=== PATIENT | female | born 1950 | race Two or more races ===

== ENCOUNTER 2019-03-10 11:34 | Outpatient (CLI) | payer OTHER ==
[~2019-03-10 11:34] MED LIST: ATENOLOL25 GM MC; GLUCOPHAGE XR500 MG PO; LOTREL 10-20 MG1 CAP PO; NOVOLIN 70100 UNITS/ IJ; VYTORIN 10-20 M1 TAB PO
== END 2019-03-10 12:03 | disposition home or self-care (01) ==
LOC: NUCLEAR 11:34
DX: M81.0 Age-related osteoporosis without current pathological fracture (principal)

== ENCOUNTER 2019-03-10 12:25 | Outpatient (CLI) | payer OTHER | END 2019-03-10 12:29 | disposition home or self-care (01) | LOC: MAMO-SONO 12:25 | DX: Z12.31 Encounter for screening mammogram for malignant neoplasm of breast (principal); Z87.898 Personal history of other specified conditions ==

== ENCOUNTER 2019-09-08 08:53 | Outpatient (CLI) | payer OTHER | END 2019-09-08 08:58 | disposition home or self-care (01) | LOC: RAD 08:53 | DX: M25.522 Pain in left elbow (principal) ==

== ENCOUNTER 2020-01-17 12:57 | Emergency (ER) | payer OTHER ==
[~2020-01-17] VITALS: Ht 162.6 cm; Wt 82.6 kg
[2020-01-17] MEDS ORDERED: LANTUS SOL100 UNIT/1 SQ (13:10)
[2020-01-17] MEDS ORDERED: SIMVASTATIN40 MG PO (13:10)
[2020-01-17] MEDS ORDERED: VALSARTAN-HCTZ1 EAC4 PO (13:10)
[2020-01-17] MEDS ORDERED: DOXAZOSIN MESYLA1 MG PO (13:11)
== END 2020-01-17 15:46 | disposition home or self-care (01) ==
LOC: ER 12:57
DX: S80.212A Abrasion, left knee, initial encounter (principal); W18.39XA Other fall on same level, initial encounter; Y93.89 Activity, other specified; Y92.480 Sidewalk as the place of occurrence of the external cause; Y99.8 Other external cause status

== ENCOUNTER 2020-02-03 04:35 | Emergency (ER) | payer OTHER ==
[~2020-02-03] VITALS: Ht 162.6 cm; Wt 83.0 kg
[~2020-02-03 04:35] MED LIST changes: +DOXAZOSIN MESYLA1 MG PO; +LANTUS SOL100 UNIT/1 SQ; +SIMVASTATIN40 MG PO; +VALSARTAN-HCTZ1 EAC4 PO
== END 2020-02-03 15:04 | disposition home or self-care (01) ==
LOC: ER 04:35
DX: N20.1 Calculus of ureter (principal)

== ENCOUNTER 2020-02-05 09:00 | Emergency (ER) | payer OTHER ==
[~2020-02-05] VITALS: Ht 162.6 cm; Wt 82.6 kg
[2020-02-05] MEDS ORDERED: TENORMIN25 MG (09:16)
== END 2020-02-05 16:25 | disposition home or self-care (01) ==
LOC: ER 09:00
DX: N20.1 Calculus of ureter (principal)

== ENCOUNTER 2020-03-02 07:20 | Outpatient (CLI) | payer OTHER ==
[~2020-03-02 07:20] MED LIST changes: +TENORMIN25 MG
== END 2020-03-02 07:33 | disposition home or self-care (01) ==
LOC: RAD 07:20
PROVIDERS: ATTEND Urology
DX: N20.1 Calculus of ureter (principal)

== ENCOUNTER 2020-03-23 08:29 | Outpatient (CLI) | payer OTHER | END 2020-03-23 08:44 | disposition home or self-care (01) | LOC: MRI 08:29 | PROVIDERS: ATTEND Physical Medicine & Rehabilitation | DX: M25.561 Pain in right knee (principal) | CPT/HCPCS: 73721 ==

== ENCOUNTER → 2020-04-24 06:58 | Outpatient (CLI) | payer OTHER | END | disposition home or self-care (01) | LOC: LAB 06:58 | PROVIDERS: ATTEND Urology | DX: N20.0 Calculus of kidney (principal); I11.9 Hypertensive heart disease without heart failure; E11.9 Type 2 diabetes mellitus without complications ==

== ENCOUNTER 2020-05-04 09:09 | Emergency (ER) | payer OTHER ==
[~2020-05-04] VITALS: Ht 162.6 cm; Wt 75.7 kg
[2020-05-04] MEDS ORDERED: FORTAMET1000 MG (09:31)
[2020-05-04] MEDS ORDERED: ZITHROMAX500 MG PO (16:44)
[2020-05-04] MEDS ORDERED: SYMBICORT 16010.2 GM IH (16:44)
[2020-05-04] MEDS ORDERED: PEPCID AC20 MG PO (16:44)
[2020-05-04] MEDS ORDERED: DECADRON4 MG PO (16:44)
[2020-05-04] MEDS ORDERED: HYDROCODONE-CH115 ML PO (17:10)
== END 2020-05-04 17:48 | disposition home or self-care (01) ==
LOC: ER 09:09
DX: U07.1 COVID-19 (principal); J18.9 Pneumonia, unspecified organism

== ENCOUNTER 2020-05-24 08:41 | Outpatient (CLI) | payer OTHER ==
[~2020-05-24 08:41] MED LIST changes: +DECADRON4 MG PO; +FORTAMET1000 MG; +HYDROCODONE-CH115 ML PO; +PEPCID AC20 MG PO; +SYMBICORT 16010.2 GM IH; +ZITHROMAX500 MG PO
== END 2020-05-24 08:47 | disposition home or self-care (01) ==
LOC: RAD 08:41
PROVIDERS: ATTEND Internal Medicine
DX: Z00.00 Encounter for general adult medical examination without abnormal findings (principal); I11.9 Hypertensive heart disease without heart failure; E66.8 Other obesity; E11.3593 Type 2 diabetes mellitus with proliferative diabetic retinopathy without macular edema, bilateral; E78.1 Pure hyperglyceridemia; E88.89 Other specified metabolic disorders; Z20.828 Contact with and (suspected) exposure to other viral communicable diseases; N18.2 Chronic kidney disease, stage 2 (mild); Z79.84 Long term (current) use of oral hypoglycemic drugs

== ENCOUNTER 2020-09-26 14:22 | Outpatient (CLI) | payer OTHER | END 2020-09-26 15:27 | disposition home or self-care (01) | LOC: MAMO-SONO 14:22 | PROVIDERS: ATTEND Internal Medicine | DX: Z12.31 Encounter for screening mammogram for malignant neoplasm of breast (principal); E78.1 Pure hyperglyceridemia; E88.89 Other specified metabolic disorders; I11.9 Hypertensive heart disease without heart failure; E66.8 Other obesity; Z79.84 Long term (current) use of oral hypoglycemic drugs; E11.21 Type 2 diabetes mellitus with diabetic nephropathy; N64.4 Mastodynia ==

== ENCOUNTER 2020-11-29 09:08 | Outpatient (CLI) | payer OTHER | END 2020-11-29 09:12 | disposition home or self-care (01) | LOC: RAD 09:08 | PROVIDERS: ATTEND Internal Medicine | DX: R07.89 Other chest pain (principal); E11.3593 Type 2 diabetes mellitus with proliferative diabetic retinopathy without macular edema, bilateral; N18.2 Chronic kidney disease, stage 2 (mild); E88.89 Other specified metabolic disorders; Z79.4 Long term (current) use of insulin; E78.1 Pure hyperglyceridemia; I11.9 Hypertensive heart disease without heart failure; E66.8 Other obesity ==

== ENCOUNTER 2021-06-04 08:56 | Outpatient (CLI) | payer OTHER | END 2021-06-04 08:57 | disposition home or self-care (01) | LOC: NUCLEAR 08:56 | PROVIDERS: ATTEND Internal Medicine Cardiovascular Disease | DX: I65.23 Occlusion and stenosis of bilateral carotid arteries (principal); I70.0 Atherosclerosis of aorta; I73.9 Peripheral vascular disease, unspecified ==

== ENCOUNTER 2021-10-30 19:29 | Emergency (ER) | payer OTHER ==
[~2021-10-30] VITALS: Ht 162.6 cm; Wt 65.8 kg
== END 2021-10-30 23:55 | disposition home or self-care (01) ==
LOC: ER 19:29
DX: N20.2 Calculus of kidney with calculus of ureter (principal); R10.13 Epigastric pain

== ENCOUNTER 2021-11-03 12:30 | Emergency (ER) | payer OTHER ==
[~2021-11-03] VITALS: Ht 162.6 cm; Wt 81.2 kg
== END 2021-11-03 15:31 | disposition home or self-care (01) ==
LOC: ER 12:30
DX: R10.13 Epigastric pain (principal); R11.10 Vomiting, unspecified; E11.9 Type 2 diabetes mellitus without complications; Z79.4 Long term (current) use of insulin; I10 Essential (primary) hypertension; Z88.8 Allergy status to other drugs, medicaments and biological substances

== ENCOUNTER 2022-01-06 10:54 | Outpatient (CLI) | payer OTHER | END 2022-01-06 11:00 | disposition home or self-care (01) | LOC: RAD 10:54 | PROVIDERS: ATTEND Urology | DX: N20.0 Calculus of kidney (principal) ==

== ENCOUNTER 2022-01-10 12:17 | Outpatient (CLI) | payer OTHER | END 2022-01-10 12:34 | disposition home or self-care (01) | LOC: TOM 12:17 | PROVIDERS: ATTEND Urology | DX: N20.1 Calculus of ureter (principal) ==

== ENCOUNTER → 2022-03-20 | Outpatient (CLI) | payer OTHER | END | disposition home or self-care (01) | LOC: RAD 10:04 | PROVIDERS: ATTEND Ophthalmology | DX: H25.011 Cortical age-related cataract, right eye (principal); Z98.41 Cataract extraction status, right eye ==

== ENCOUNTER 2022-12-02 14:23 | Outpatient (CLI) | payer OTHER | END 2022-12-02 14:28 | disposition home or self-care (01) | LOC: MAMO-SONO 14:23 | DX: Z12.31 Encounter for screening mammogram for malignant neoplasm of breast (principal); N64.4 Mastodynia ==

== ENCOUNTER 2023-04-18 09:09 | Emergency (ER) | payer OTHER ==
[~2023-04-18] VITALS: Ht 162.6 cm; Wt 78.9 kg
== END 2023-04-18 13:37 ==
LOC: ER 09:10
DX: M54.42 Lumbago with sciatica, left side (principal); I10 Essential (primary) hypertension; E11.9 Type 2 diabetes mellitus without complications; Z79.84 Long term (current) use of oral hypoglycemic drugs; Z91.041 Radiographic dye allergy status
CPT/HCPCS: 96372; 99282; J1885; J2360

== ENCOUNTER 2024-02-29 13:00 | Outpatient (CLI) | payer OTHER | END 2024-02-29 13:03 | disposition home or self-care (01) | LOC: RAD 13:00 | PROVIDERS: ATTEND Orthopaedic Surgery Orthopaedic Surgery of the Spine | DX: M43.10 Spondylolisthesis, site unspecified (principal) ==

== ENCOUNTER 2024-09-05 10:06 | Outpatient (CLI) | payer OTHER | END 2024-09-05 10:08 | disposition home or self-care (01) | LOC: RAD 10:06 | PROVIDERS: ATTEND Orthopaedic Surgery Orthopaedic Surgery of the Spine | DX: M43.26 Fusion of spine, lumbar region (principal) ==

== ENCOUNTER 2025-07-12 07:32 | Outpatient (CLI) | payer OTHER ==
[~2025-07-12 07:32] MED LIST changes: +NABUMETONE750 MG PO
== END 2025-07-12 07:35 | disposition home or self-care (01) ==
LOC: SONOGRAMA 07:32
PROVIDERS: ATTEND Internal Medicine Nephrology
DX: N18.2 Chronic kidney disease, stage 2 (mild) (principal); N39.3 Stress incontinence (female) (male)